=== PATIENT | male | born 1965 | race Caucasian/White ===

== ENCOUNTER 2020-03-06 22:46 | Emergency (ER) | payer BC, SELFPAY ==
[2020-03-06 23:18] VITALS: BP 135/89; PULSE 115; RESP 18; TEMP 36.8; O2SAT 100
[2020-03-07 00:07] LABS: Add Urine Microscopic? YES; Appearance Urine Cloudy (Clear); Bacteria Urine Trace /hpf; Bilirubin Urine Negative (Negative); Blood Urine 3+ (Negative); Color Urine Yellow (Yellow); Glucose Urine UA Negative (Negative); Ketones Urine Negative (Negative); Leukocyte Esterase Ur Trace LEU/UL (Negative); Mucus Urine Rare /lpf; Nitrate Urine Negative (Negative); Protein Urine 1+ mg/dL (Negative); RBC Urine >75 /hpf (0-2); Squamous Epithelial Cell Urine Rare /hpf (Few); Urobilinogen Urine Negative mg/dL (<2.0); WBC Urine 16-20 /hpf
[2020-03-07 00:55] VITALS: BP 128/72; PULSE 102; RESP 18; O2SAT 99
[2020-03-07 02:59] VITALS: BP 158/97; PULSE 118; RESP 18; O2SAT 100
--- NOTE | 2020-03-07 03:22 | ED.GENADULT ---
HPI - General Adult General Chief complaint: Urogenital-Male Stated complaint: pain w/ urination, blood Time Seen by Provider: 03/07/20 02:30 Source: patient Mode of arrival: ambulatory Limitations: no limitations History of Present Illness HPI narrative: This patient is a 54 year old male who presents for evaluation of blood in his urine and painful urination. He states around 9 pm he was urinating and they he suddenly developed painful urination. He describes feeling that something is blocking his stream. Now he is only dribbling when he urinates. He has also noticed some blood in his urine. He denies abdominal pain, fever, nausea or vomiting. Related Data Allergies Allergy/AdvReac Type Severity Reaction Status Date / Time No Known Allergies Allergy Unverified 01/25/15 04:13 Review of Systems Review of Systems: All systems reviewed & are unremarkable except as noted in HPI and below PMFSH Past Medical History Medical History (Updated 03/07/20 @ 03:47 by Meka Willingham MD) Crohn's disease Surgical History Surgical History (Updated 03/07/20 @ 03:25 by Meka Willingham MD) History of bowel resection Social History Social History (Updated 03/07/20 @ 03:26 by Meka Willingham MD) Smoking status: Never smoker Substance use: never Exam Const: General: no acute distress and alert Orientation/consciousness: patient oriented x3 HENMT: Head: atraumatic General nose exam: No nasal polyps present Face and sinus: face symmetric Mouth: Yes Normal oral and palatal mucosa present and Yes oropharynx normal Throat: posterior oropharynx normal, tonsils normal and uvula midline Eyes: EOM: EOMs intact bilaterally Resp: Effort & Inspection: normal respiratory effort and no retractions Auscultation: clear to auscultation bilaterally Cardio: Rate: regular rate Rhythm: regular rhythm Heart sounds: no murmurs GI: GI Palp: Yes Soft to palpation, No Tenderness to palpation present (GI), No Guarding due to palpation present (GI) and No Rigid due to palpation Auscultation: normal bowel sounds : Penis: Yes circumcised Meatus: other (blood tinged at meatus) Course Reevaluation(s) Reevaluation #1: I performed a bedside ultrasound no clots seen in bladder. I sent patient to bathroom to urinate. HE states he was able to urinate with steady stream and he feels like the obstruction cleared. Bladder scan only showed 40 ml. I discussed with patient plan to discharge home with flomax and antibiotics. Date: 03/07/20 Time: 03:44 Vital Signs Vital signs: Vital Signs Temperature 98.3 F 03/06/20 23:18 Pulse Rate 115 H 03/06/20 23:18 Respiratory Rate 18 03/06/20 23:18 Blood Pressure 135/89 03/06/20 23:18 Pulse Oximetry 100 03/06/20 23:18 Temperature 98.3 F 03/06/20 23:18 Pulse Rate 72 03/07/20 04:06 Respiratory Rate 16 03/07/20 04:06 Blood Pressure 120/64 03/07/20 04:06 Pulse Oximetry 99 03/07/20 04:06 Medical Decision Making Vital Signs Vital Signs: Vital Signs Temperature 98.3 F 03/06/20 23:18 Pulse Rate 115 H 03/06/20 23:18 Respiratory Rate 18 03/06/20 23:18 Blood Pressure 135/89 03/06/20 23:18 Pulse Oximetry 100 03/06/20 23:18 Temperature 98.3 F 03/06/20 23:18 Pulse Rate 72 03/07/20 04:06 Respiratory Rate 16 03/07/20 04:06 Blood Pressure 120/64 03/07/20 04:06 Pulse Oximetry 99 03/07/20 04:06 Lab Data Labs: Lab Results 03/06/20 Range/Units 23:49 Urine Color Yellow (Yellow) Urine Appearance Cloudy H (Clear) Urine pH 6.0 (5.0-9.0) Ur Specific [place] 1.020 (1.001-1.035) Urine Protein 1+ H (Negative) mg/dL Urine Glucose (UA) Negative (Negative) mg/dL Urine Ketones Negative (Negative) mg/dL Ur Blood (Man) 3+ H (Negative) Urine Nitrate Negative (Negative) Urine Bilirubin Negative (Negative) Urine Urobilinogen Negative (<2.0) mg/dL Leukocyte Esterase Rfl Trace H (Nega
[2020-03-07 04:06] VITALS: BP 120/64; PULSE 72; RESP 16; O2SAT 99
== END 2020-03-07 04:07 | disposition home or self-care (01) ==
PROVIDERS: Emergency Provider General Practice
DX: N39.0 Urinary tract infection, site not specified (principal); K50.90 Crohn's disease, unspecified, without complications
CPT/HCPCS: 81001; 87086; 87088; 99283

== ENCOUNTER 2020-09-22 19:01 | Emergency (ER) | payer BC, SELFPAY ==
[2020-09-22 19:10] VITALS: BP 167/83; PULSE 120; RESP 18; TEMP 37.4; O2SAT 100
[2020-09-22] MEDS: TETANUS,DIPHTHERIA,AC PERTUSSIS ADULT (0.5 ML) BOOSTRIX IM (19:35)
--- NOTE | 2020-09-22 19:37 | ED.WOUNDLAC ---
HPI - Wound/Laceration General Chief Complaint: Wound/Laceration Stated Complaint: laceration Source: patient Limitations: no limitations History of Present Illness HPI narrative: 55 year old male presents to [facility] with complaints of laceration to his left first webspace which occurred 1 hour ago. Patient reports that he was attempting to open a can of frozen orange juice with a knife when the knife slipped and he sustained a laceration. Patient reports that his last tetanus shot was over 10 years ago. Patient denies numbness, tingling, heavy bleeding or decreased range of motion Onset (ago): hour(s) (1) Place: home Associated symptoms: none Related Data Home Medications Medication Instructions Recorded Confirmed No Home Medications 09/22/20 09/22/20 Allergies Allergy/AdvReac Type Severity Reaction Status Date / Time No Known Allergies Allergy Verified 09/22/20 19:27 Review of Systems Constitutional: Constitutional: Denies chills, Denies fatigue, Denies fever(s) and Denies weakness Cardiovascular: Cardiovascular: Denies chest pain, Denies rapid heart rate, Denies radiating jaw, neck or arm pain and Denies slow heart rate Gastrointestinal: Gastrointestinal: Denies abdominal pain, Denies constipation, Denies diarrhea, Denies nausea and Denies vomiting Integumentary/Breasts: Skin/Breast: Denies pruritus, Denies erythema and Denies rash Comments: laceration to left 1st webspace Neurologic: Denies dizziness PMFSH Past Medical History Medical History Crohn's disease Surgical History Surgical History History of bowel resection Social History Social History Smoking status: Never smoker Substance use: never Gender identity (if verbalized by the patient): Male Comments At time of signature, I agree with nursing past medical, surgical, social and family history. There is no relevant family history pertinent to the presenting complaint. Exam Const: General: no acute distress Nutritional Appearance: well nourished Orientation/consciousness: patient oriented x3 Neck: Neck: normal visual inspection Resp: Effort & Inspection: normal respiratory effort, not labored and not tachypneic Auscultation: clear to auscultation bilaterally Cardio: Rate: regular rate Rhythm: regular rhythm Skin: General skin exam: normal color Rashes: no rashes Other: 1 cm gaping laceration noted to left first webspace. There is no bleeding, purulent drainage, bruising or swelling noted. Full range of motion noted to left hand Neuro: General: patient oriented x3 and moves all extremities Speech: normal speech Extrem: General: no clubbing, cyanosis or edema and no pedal edema Psych: Appearance: grossly normal Affect: normal affect Attitude: cooperative Thought content: Yes Normal thought content present Course Vital Signs Vital signs: Vital Signs Temperature 37.4 C 09/22/20 19:10 Pulse Rate 120 H 09/22/20 19:10 Respiratory Rate 18 09/22/20 19:10 Blood Pressure 167/83 H 09/22/20 19:10 Pulse Oximetry 100 09/22/20 19:10 Temperature 37.4 C 09/22/20 19:10 Pulse Rate 120 H 09/22/20 19:10 Respiratory Rate 18 09/22/20 19:10 Blood Pressure 167/83 H 09/22/20 19:10 Pulse Oximetry 100 09/22/20 19:10 Procedures Laceration Laceration 1: Date: 09/22/20 Time: 19:41 Site: other (Left first webspace) Size (cm): 1 Description: linear Depth: simple, single layer Local Anesthetic: lidocaine 1% Amount of anesthesia used (mL): 3 ====== Skin Level ====== Skin layer closed with: other (Ethilon) Size (cm): 5-0 Number of sutures: 2 Technique: simple, interrupted ====== Subcutaneous Layer ====== ====== Muscle Layer ====== ======
== END 2020-09-22 19:47 | disposition home or self-care (01) ==
PROVIDERS: Emergency Provider Nurse Practitioner Family; PCP Urology
DX: S61.412A Laceration without foreign body of left hand, initial encounter (principal); W26.0XXA Contact with knife, initial encounter; Z23 Encounter for immunization; K50.90 Crohn's disease, unspecified, without complications
CPT/HCPCS: 12001; 90471; 90715; 99212; G0463

== ENCOUNTER 2022-12-04 16:31 | Emergency (ER) | payer BC, SELFPAY ==
[2022-12-04 16:48] VITALS: BP 127/68; PULSE 139; RESP 16; TEMP 37.4; O2SAT 100
--- NOTE | 2022-12-04 16:57 | ED.MALEGU ---
HPI - Male Genitourinary General Chief complaint: Urogenital-Male Stated complaint: uti symptoms Time Seen by Provider: 12/04/22 16:58 Source: patient, RN notes reviewed and old records reviewed Mode of arrival: ambulatory Limitations: no limitations History of Present Illness HPI Narrative: 57 year old male who presents to [facility] care with complaints of urinary burning, frequency and urgency for past 3 days. Patient reports some clear discharge when urinating 2-3 times since Saturday, denies any concern for STD exposure or desire for STD testing, Patient reports that he has not noted any visible blood in his urine, denies any lower abdomen or back pain. Patient denies any nausea vomiting or diarrhea, denies any fevers chills or sweats. MD Complaint: penile discharge, dysuria and other (urinary freqency and urgency) Onset (ago): day(s) (3) Location: penis Severity scale (1-10): 3 Related Data Allergies Allergy/AdvReac Type Severity Reaction Status Date / Time No Known Allergies Allergy Verified 12/04/22 16:35 Review of Systems Review of Systems: CONSTITUTIONAL: Denies fever, chills, or sweats. CARDIOVASCULAR: Denies chest pain, palpitations, or edema. RESPIRATORY: Denies cough or dyspnea. GASTROINTESTINAL: Denies abdominal pain, nausea, vomiting, or diarrhea. GENITOURINARY: Reports dysuria, frequency, urgency. Denies flank pain or hematuria.some clear penile discharge 2-3 times since Saturday denies concern for STD SKIN: Denies rash or itching. MUSCULOSKELETAL: Denies back pain or myalgia. Denies CVA tenderness NEUROLOGIC: Denies headache All systems reviewed & are unremarkable except as noted in HPI and below PMFSH Past Medical History Medical History (Updated 12/05/22 @ 09:18 by Barbara Shahid NP) Anxiety Crohn's disease IBS (irritable bowel syndrome) Kidney stone Surgical History Surgical History History of bowel resection Social History Social History Smoking status: Never smoker Substance use: never Gender identity (if verbalized by the patient): Male Comments At time of signature, agree with nursing past medical, surgical, social and family history. There is no relevant family history pertinent to the presenting complaint Exam Narrative: GENERAL: Well-appearing, well-nourished, and in no acute distress. HEAD: Normocephalic, atraumatic. NECK: Supple. no lymphadenopathy CHEST: Clear to auscultation. No respiratory distress.SAO2 100% on room air HEART: Regular rate and rhythm. No murmur heard. Normal peripheral pulses. ABDOMEN: Soft, nontender, nondistended, normal active bowel sounds. No CVA tenderness, reports burning with urination, some clear discharge noted 2 or 3 times when urinating, denies testicle pain. Patient reports continued burning with urination and frequency and urgency of urination. EXTREMITIES: Normal range of motion. No edema. SKIN: Warm, dry, no rash. NEURO: No focal deficits. Alert and oriented x3. Course Course Emergency Course: Patient is aware of diagnosis, understands and agrees to treatment plan.? Anticipatory guidance given.? Patient agrees to follow-up as directed and is aware of reasons to seek care at the emergency department. Portions of this record may have been created with voice recognition software Level of Care: Express Care Visit Vital Signs Vital signs: Vital Signs Temperature 37.4 C 12/04/22 16:48 Pulse Rate 139 H 12/04/22 16:48 Respiratory Rate 16 12/04/22 16:48 Blood Pressure 127/68 12/04/22 16:48 Pulse Oximetry 100 12/04/22 16:48 Oxygen Delivery Room Air 12/04/22 16:48 Temperature 37.4 C 12/04/22 16:48 Pulse Rate 139 H 12/04/22 16:48 Respiratory Rate 16 12/04/22 16:48 Blood Pressure 127/68 12/04/22 16:48 Pulse Oximetry 100 12/04/22 16:48 Oxygen Delivery Room Air 12/04/22 16:48 reviewed
== END 2022-12-04 17:14 | disposition home or self-care (01) ==
PROVIDERS: Emergency Provider Registered Nurse; PCP Urology
DX: N39.0 Urinary tract infection, site not specified (principal); K50.90 Crohn's disease, unspecified, without complications
CPT/HCPCS: 81003; 87077; 87086; 87186; 99213; G0463

== ENCOUNTER 2023-06-16 17:41 | Emergency (ER) | payer BC, SELFPAY ==
--- NOTE | ~2023-06-16 | CT_ITS ---
EXAMINATION: CT abdomen pelvis w con DATE: 06/16/2023 21:31 INDICATION: abdominal abscess TECHNIQUE: Computed tomography (CT) of the abdomen and pelvis was performed with 100 mL Omnipaque-350 intravenous contrast. Automated exposure control and iterative reconstruction technique were employe d. The dose-length product was 197.59 mGy-cm. COMPARISON: 01/25/2015. FINDINGS: Lower thorax: Unremarkable Liver: Normal. Biliary/Gallbladder: Gallbladder is partially collapsed. No bile duct dilation. Pancreas: No mass or duct dilation. Spleen: Normal. Adrenals:No mass. Kidneys: No suspicious mass, obstructing stone, or hydronephrosis. 3 mm left midpole nonobstructing c alcification. GI tract: Multiple loops of irregularly dilated small bowel in the mid and right lower abdomen with s evere wall edema and significant surrounding inflammatory change and fluid. Very small foci of gas an d partially encapsulated fluid tracking anteriorly along the involved bowel in the right lower quadra nt (axial images 105-108/197). Inflammatory change and stranding extends to the dome of the bladder a nd the umbilicus. Coarse calcification surrounding bowel in the right lower quadrant, likely postsurg ical change. Appendix not confidently visualized. Mesentery/Peritoneum: No ascites, mass, or free air. Retroperitoneum: No mass. Pelvis: Focal wall thickening at the dome of the bladder. Intraluminal gas. Prostatomegaly. Small vol ume free fluid. 10 mm calcification in the deep fluid within the deep pelvis, possibly a peritoneal l oose body. Soft Tissues: Soft tissues and body wall unremarkable. Bones: No acute osseous finding. Stable mild anterior wedge deformity at T12 and L1. 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 Very small extraluminal gas and fluid collections tracking anteriorly along the involved bowel in the right lower quadrant may represent contained perforations and/or early abscesses, although this dete rmination is difficult given the degree of anatomical distortion. Repeat examination with oral contra st would be helpful. Small volume free fluid in the deep pelvis. Reviewed, dictated and finalized at location K. 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 Very small extraluminal gas and fluid collections tracking anteriorly along the involved bowel in the right lower quadrant may represent contained perforation s and/or early abscesses, although this determination is difficult given the de gree of anatomical distortion. Repeat examination with oral contrast would be h elpful. Small volume free fluid in the deep pelvis.
[2023-06-16 17:42] VITALS: BP 130/81; PULSE 142; RESP 20; TEMP 36.5; O2SAT 99
--- NOTE | 2023-06-16 20:06 | ECG_ITS ---
Measurements Intervals [place] Rate: 113 P: 69 SC: 118 QRS: 13 QRSD: 92 T: 50 QT: 312 QTc: 429 Interpretive Statements SINUS TACHYCARDIA WITH SHORT SC INTERVAL OTHERWISE NORMAL ECG NO PREVIOUS ECG AVAILABLE FOR COMPARISON Electronically Signed On 06-17-2023 7:23:28 [employer] by Santosh Lugo M.D.
--- NOTE | 2023-06-16 20:08 | ED.SKABFB ---
HPI - Skin/Abscess/Foreign Bdy General Chief complaint: Skin/Abscess/Foreign Body Stated complaint: abcess on abd Time Seen by Provider: 06/16/23 19:56 History of Present Illness HPI narrative: 58-year-old male with history of Crohn's disease, IBS, s/p bowel resection in 2017 reports for evaluation for an abdominal abscess for the past couple of weeks. Patient states a few weeks ago, he noticed redness and swelling to his abdomen. States it started to improved with time, however the past few days it has become more inflamed. States it has been draining yellow discharge for approximately 1 week. Denies fever, nausea vomiting. States he has diarrhea that is unchanged from his baseline. His GI specialist is Dr. Bean. He has not seen Dr. Bean in many years. Related Data Allergies Allergy/AdvReac Type Severity Reaction Status Date / Time No Known Allergies Allergy Verified 12/04/22 16:35 Review of Systems Review of Systems: CONSTITUTIONAL: Denies fever, chills, or sweats. EYES: Denies visual changes, redness, or discharge. ENT: Denies rhinorrhea, congestion, sore throat, or otalgia. CARDIOVASCULAR: Denies chest pain, palpitations, or edema. RESPIRATORY: Denies cough or dyspnea. GASTROINTESTINAL: See HPI GENITOURINARY: Denies dysuria or hematuria. SKIN: Denies rash or itching. MUSCULOSKELETAL: Denies back pain, joint pain, or myalgia. NEUROLOGIC: Denies headache, numbness, or weakness. PSYCHIATRIC: Denies anxiety or depression. [facility] Past Medical History Medical History Anxiety Crohn's disease IBS (irritable bowel syndrome) Kidney stone Surgical History Surgical History History of bowel resection Social History Social History Smoking status: Never smoker Substance use: never Gender identity (if verbalized by the patient): Male Exam Narrative: GENERAL: Well-appearing, well-nourished, and in no acute distress. HEAD: Normocephalic, atraumatic. EYES: PERRLA and EOMI. ENT: Nares clear, no rhinorrhea or epistaxis. Mucous membranes moist. NECK: Supple. CHEST: Clear to auscultation. No respiratory distress. HEART: Regular rate and rhythm. No murmur heard. Normal peripheral pulses. ABDOMEN: Soft, nontender, nondistended, normal active bowel sounds. See skin exam EXTREMITIES: Normal range of motion. No edema. SKIN: Approximately 7 cm of blanching erythema and warmth to the suprapubic region with approximately 1 cm area of edematous skin draining purulent yellow foul-smelling odor. NEURO: No focal deficits. Alert and oriented x3 Course Course Emergency Course: Pain meds offered, patient declined Vital Signs Vital signs: Vital Signs Temperature 97.7 F 06/16/23 17:42 Pulse Rate 142 H 06/16/23 17:42 Respiratory Rate 20 06/16/23 17:42 Blood Pressure 130/81 06/16/23 17:42 Pulse Oximetry 99 06/16/23 17:42 Oxygen Delivery Room Air 06/16/23 17:42 Temperature 98.6 F 06/16/23 23:40 Pulse Rate 100 06/17/23 00:54 Respiratory Rate 16 06/17/23 00:54 Blood Pressure 149/76 H 06/17/23 00:54 Pulse Oximetry 100 06/17/23 00:54 Oxygen Delivery Room Air 06/16/23 17:42 MDM - Skin/Abscess/Foreign Bdy MDM Narrative Medical decision making narrative: 58-year-old male with history of Crohn's and IBS reports for evaluation for an abdominal abscess for the past few weeks. See HPI for further history. Triage vital significant for tachycardia 142. He is afebrile. Exam is significant for the above. CBC is without leukocytosis. Hemoglobin is 11.8, no prior for comparison. Chemistries show creatinine 1.4, normal BUN. UA with 11-20 wbc's, no bacteria. He is asymptomatic. CRP is normal. ESR is 47. Lactic acid normal 1.2. CT abdomen pelvis significant for multiple to severely edematous, inflamed and i
[2023-06-16] MEDS: SODIUM CHLORIDE 0.9% IV 1,000 ML 999 ML IV CONT ×3 (20:22→23:43)
[2023-06-16 20:26] LABS: Basophils Absolute Auto 0.1 K/mm3 (0.0-0.1); Basophils Percent Auto 0.8 % (0.2-1.2); Eosinophils Absolute Auto 0.1 K/mm3 (0-0.3); Hematocrit 36.9 % (42.0-52.0); Hemoglobin 11.8 g/dL (14.0-18.0); Immature Granulocyte Absolute 0.04 K/mm3 (0.00-0.031); Immature Granulocyte Percent A 0.7 % (0-0.5); Lymphocytes Absolute Auto 1.06 K/mm3 (0.9-3.2); Lymphocytes Percent Auto 17.9 % (18.3-44.2); Mean Corpuscular Hemoglobin 26.3 pg (26-34); Mean Corpuscular Volume 82.2 fl (80-100); Mean Platelet Volume 8.2 fl (7.4-10.4); Monocytes Absolute Auto 0.5 K/mm3 (0.1-0.6); Neutrophils Absolute Auto 4.2 K/mm3 (1.3-6.7); Neutrophils Percent Auto 70.6 % (45.5-73.1); Platelet Count Result 448 k/mm3 (150-375); Red Blood Count 4.49 M/mm3 (4.6-6.20); Red Cell Distribution Width 13.5 % (11.5-14.5); White Blood Count 5.9 K/mm3 (4.5-10.0)
[2023-06-16 20:36] LABS: Alanine Aminotransferase 11 U/L (6-50); Alkaline Phosphatase 79 U/L (38-126); Anion Gap 6 mmol/L (8-16); Aspartate Amino Transferase 19 U/L (17-59); Bilirubin,Total 0.4 mg/dL (0.2-1.3); Blood Urea Nitrogen 14 mg/dL (9-20); Calcium 8.6 mg/dL (8.4-10.2); Carbon Dioxide 24 mmol/L (22-30); Chloride 106 mmol/L (98-107); Estimated CRCL calculation 50 ml/min; Estimated Glomerular Filt Rate 52; Glucose 84 mg/dL (65-110); Lactic Acid Reflex 1.2 mmol/L (0.7-2.0); Potassium 3.4 mmol/L (3.4-5.0); Prothrombin Time 13.2 Seconds (11.1-14.7); Sodium 136 mmol/L (137-145)
[2023-06-16 20:37] LABS: Partial Thromboplastin Time 25.7 SECONDS (22.3-36.8)
[2023-06-16 20:55] LABS: CRP 0.8 mg/dL (<1.0)
[2023-06-16 21:07] LABS: Erythrocyte Sedimentation Rate 47 mm/hr (0-20)
[2023-06-16 22:07] LABS: Appearance Urine Clear (Clear); Bacteria Urine None Seen /hpf; Bilirubin Urine Negative (Negative); Blood Urine Negative (Negative); Color Urine Yellow (Yellow); Glucose Urine UA Negative (Negative); Ketones Urine 1+ mg/dL (Negative); Leukocyte Esterase Ur 1+ LEU/UL (Negative); Nitrate Urine Negative (Negative); Non Pathogenic Casts 0-2; Protein Urine Negative (Negative); RBC Urine 0-2 /hpf (0-2); Squamous Epithelial Cell Urine None seen /hpf (Few); Urobilinogen Urine 0.2 mg/dL (<2.0)
[2023-06-16 22:08] LABS: Add Urine Microscopic? YES
--- NOTE | 2023-06-16 23:28 | PC.NURSE ---
Spoke with [facility] transfer center who advised patient will be accepted to [facility].
[2023-06-16 23:40] VITALS: BP 150/80; PULSE 108; RESP 18; TEMP 37; O2SAT 100
[2023-06-16] MEDS: PIPERACILLN/TAZ 3.375GM/NS50ML 3.375 GM/50 ML BAG IVPB (23:44)
[2023-06-17 00:14] VITALS: BP 140/72; PULSE 100; O2SAT 100
[2023-06-17] MEDS: VANCOMYCIN 1,250 MG/NS 250 ML 1,250 MG/250 ML BAG 166.67 MG IVPB (00:21)
[2023-06-17 00:54] VITALS: BP 149/76; PULSE 100; RESP 16; O2SAT 100
== END 2023-06-17 02:21 | disposition short-term general hospital (02) ==
PROVIDERS: Emergency Provider Physician Assistant; PCP Urology
DX: L02.211 Cutaneous abscess of abdominal wall (principal); K50.90 Crohn's disease, unspecified, without complications; Z90.49 Acquired absence of other specified parts of digestive tract; Z87.442 Personal history of urinary calculi
CPT/HCPCS: 36415; 74177; 80053; 81001; 83605; 85025; 85610; 85652; 85730; 86140; 87086; 93005; 96361; 96365; 96367; 99285; J2543; J3370; J7030; Q9967